=== PATIENT | male | born 1950 | race Caucasian/White ===

== ENCOUNTER 2020-06-05 15:04 | Outpatient (CLI) | payer MEDICARE, BC ==
[~2020-06-05] VITALS: Ht 175.3 cm; Wt 92.5 kg
[2020-06-05] MEDS ORDERED: NS 1,000 ML IV SCH (15:44)
[2020-06-05] MEDS ORDERED: ALBUTEROL SULFATE 2.5 MG/0.5 ML INH NEB SOLN INH PRN (15:45)
[2020-06-05] MEDS ORDERED: ALBUTEROL 90 MCG/ACT 8GM HFA INHALER INH PRN (15:45)
[2020-06-05] MEDS ORDERED: methylPREDNISolone 125MG 2ML VIAL IV PRN (15:45)
[2020-06-05] MEDS ORDERED: diphenhydrAMINE 50MG/ML VIAL (J1200) IV PRN (15:45)
[2020-06-05] MEDS ORDERED: EPINEPHrine INJ 1 MG/ML 1ML AMP IM PRN (15:45)
--- NOTE | 2020-06-05 15:46 | IPNPDOC ---
Text Note Date of Service The patient was seen on 06/05/20. NOTE Patient 69 years old male with past medical history of COPD presented hospital for monoclonal antibiotic infusion due to COVID 19. Physical exam pertinent for diminished lung sounds bilaterally. Patient signed the consent form BINA SANCHEZ DO Jun 05, 2020 15:46
[2020-06-05 16:13] VITALS: BP 138/77
[2020-06-05] MEDS ORDERED: BAMLANIVIMAB 700 MG in NS 250 ML IV ONE (16:30)
[2020-06-05 18:44] VITALS: BP 134/72
[2020-06-05 19:29] VITALS: BP 138/83
[2020-06-05 20:36] VITALS: BP 150/69
== END 2020-06-05 20:45 | disposition home or self-care (01) ==
LOC: M OPCLI4PV 15:04 → M 4MAIN 15:09 → M OPCLI4PV 20:45
PROVIDERS: ATTEND Internal Medicine
DX: U07.1 COVID-19 (principal); Z88.8 Allergy status to other drugs, medicaments and biological substances